=== PATIENT | female | born 1960 | race Caucasian/White ===

== ENCOUNTER 2025-05-09 13:35 | Emergency (ER) | payer OTHER, SELFPAY ==
[2025-05-09 14:03] VITALS: BP 145/88
--- NOTE | 2025-05-09 14:58 | ED.SKININJ ---
HPI-Injury
General
Chief Complaint: Skin Surface Trauma
Source: patient
Exam Limitations: none
Time Seen by Provider: 05/09/25 14:55
Nursing documentation reviewed up to this point in time: agreed with
History of Present Illness-Injury
Initial Injury comments:
64-year-old female with history of DVT on Eliquis, HTN, [place]ledge filter states she lacerated her left hand on a chainsaw about 2 hours ago at home. She is unsure of her last tetanus immunization.
Past History
Past History
ED Past Medical History: HTN and Other (DVT on Eliquis)
ED Past Surgical History: Gynecological and Orthopedic
Social History
Tobacco: Non-smoker
Alcohol: None
Drug: None
Personal:
Living: with family
Review of Systems
Review of Systems
Allergies reviewed?: Yes
All Other Systems: ROS reviewed and negative except as documented in HPI and ROS
Skin: Reports other (Cut on left hand)
Neurological: Denies numbness
Skin Exam
Laceration
dorsum left hand base of middle finger:
Length in cm: 2
Orientation: horizontal
Type of Laceration: simple
Any active bleeding?: no active bleeding
Distal skin color and temperature: normal-warm & good color
Normal distal neurovascular exam: Yes
Range of motion: full
Phy Exam
Physical Exam
Physical Exam:
GENERAL: No acute distress. A&Ox3.
CONSTITUTIONAL: Afebrile.
RESPIRATORY: Regular respirations, nonlabored, lungs clear.
CARDIOVASCULAR: Regular rate and rhythm, no murmurs, no rubs.
MUSCULOSKELETAL: Full ROM all fingers left hand. Tendons function intact. Moves with ease. Well perfused.
SKIN: Warm, dry, pink
PSYCH: Normal mood and affect. Well kept, interactive and appropriate
NEUROLOGIC: Awake, alert and oriented. No focal neurological deficits
Course
Orders/Labs/Results
Orders:
Orders
05/09/25 14:54
Hand, Left 3 View [CR Hand - Left Min 3 Views] Urgent
Comment:
Reason For Exam: lac from a chainsaw
05/09/25 14:57
Tetanus/Diphth/Acelpertussis [Adacel] 0.5 ml IM .ONCE ONE
Vital Signs
Initial and Last Documented VS:
Initial Vital Signs
Temp Pulse Resp Pulse Ox
98.7 F 88 18 97
05/09/25 13:59 05/09/25 13:59 05/09/25 13:59 05/09/25 13:59
Last Documented Vital Signs
Temp Pulse Resp BP Pulse Ox
98.7 F 88 18 145/88 97
05/09/25 13:59 05/09/25 13:59 05/09/25 13:59 05/09/25 14:03 05/09/25 15:03
Procedures
Laceration Closure
Dorsum left hand base middle finger:
Status of Wound: clean
Size of Wound in cm: 2
Description of Wound Edges: sharp
Preparation: cleaned with soap & water
Revision/Debridement: routine- no revision
Wound exploration: explored to base- no FB and no tendon involvement
Type of Closure: single layer closure
Skin Closure Material: 4-0 nylon
Number of sutures: 6
Additional information:
ATB ointment and dressing applied
MDM/Problems Addressed
Differential Diagnosis Includes:
Laceration, fracture, tendon injury
MDM/Problems Addressed:
64-year-old female with history of DVT on Eliquis, HTN, [place]ledge filter states she lacerated her left hand on a chainsaw about 2 hours ago at home. She is unsure of her last tetanus immunization.
X-ray left hand negative for fracture or visible foreign body
Tdap updated
No tendon involvement
*Pulse Oximetry
SaO2: 97
Oxygen Mode of Delivery: Room air
Patient hypoxic: not evaluated
*Critical Care Note
Total Time (30-74mins, 75-104mins- exclusive of procedures): Not Applicable
ED Attending Note
-
Portions of this chart may have been created with voice recognition software.� Occasional wrong word or��sound alike� substitutions may have occurred due to the inherent limitations of voice recognition software.
Discharge Plan
Departure
Patient Disposition: Home (Routine Discharge)
Date of Disposition: 05/09/25
Time of Disposition: 15:31
Patient with high blood pressure during this ER visit?: No
Condition: Good
Discharge Problem:
Laceration of left hand
Instructions: Laceration Repair With Stitches (DC)
Prescriptions:
No Action
clarithromycin [Biaxin] 500 MG tablet
800 mg PO
warfarin [Jantoven] 7.5 MG tablet
7.5 mg PO DAILY
amlodipine-benazepril 1 CAPSULE capsule
1 cap PO DAILY
Tramadol HCl
PO Q4HPRN PRN (Reason: pain)
triamcinolone acetonide [Nasacort AQ] 16.5 GM aerosol,spray
16.5 gm NS DAILY Qty: 1 0RF
guaifenesin 400 MG tablet
400 mg PO Q6 Qty: 20 0RF
amoxicillin-pot clavulanate 1 TABLET tablet
1 tab PO Q12 Qty: 20 0RF
prednisone 50 MG tablet
50 mg PO DAILY Qty: 4 0RF
albuterol sulfate 2.5 MG/3 ML solution for nebulization
2.5 mg inhalation R QID 20 Days Qty: 60 0RF
Activity Restrictions/Additional Instructions:
As we discussed, have the sutures removed in 12 to 14 days.
Seek medical care immediately for signs of infection which may include increasing redness, swelling, pain, pus drainage, red streak up the arm or fever.
Interventions
Interventions:
*Risk Screen - Suicide Last Done: 05/09/25 13:59
*General Assessment Last Done: 05/09/25 13:59
*Neglect/Abuse Screening Last Done: 05/09/25 13:59
*ED COVID-19 Vaccine History Last Done: 05/09/25 14:54
*Nursing Disposition Last Done: 05/09/25 15:55
ED-Skin Assessment Last Done: 05/09/25 14:54
Discharge Date and Time
Discharge Date/Time: 05/09/25 15:56
Print Language: GAMBIAN
[2025-05-09] MEDS: ADACEL 0.5 ML IM (15:48)
== END 2025-05-09 15:56 | disposition home or self-care (01) ==
LOC: EMR 13:35
PROVIDERS: EMERGENCY PHYSICIAN Student in an Organized Health Care Education/Training Program; FAMILY PHYSICIAN Family Medicine
DX: S61.412A Laceration without foreign body of left hand, initial encounter (principal); W31.2XXA Contact with powered woodworking and forming machines, initial encounter; Z23 Encounter for immunization; I10 Essential (primary) hypertension; Z79.01 Long term (current) use of anticoagulants; Z86.718 Personal history of other venous thrombosis and embolism; Z88.5 Allergy status to narcotic agent; Z88.6 Allergy status to analgesic agent; Z91.030 Bee allergy status; Z91.012 Allergy to eggs
CPT/HCPCS: 99283; 12001; 90471; 73130; 90715